=== PATIENT | female | born 1970 ===

== ENCOUNTER 2016-09-26 15:36 | Emergency (ER) | payer OTHER ==
[2016-09-26 15:55] VITALS: TEMP 98.5
--- NOTE | 2016-09-26 16:22 | C.PDOC ---
History Of Present Illness 46 yr old female presents to the ER for evaluation of itchy rash to the bilateral upper extremities, chest, abdomen and lower back for the past 3 days. patient denies prior history of allergies, sick contact, fever, chills, chest pain, SOB, wheezing, nausea, vomiting, weakness or numbness. Time Seen by Provider: 09/26/16 15:59 Chief Complaint (Nursing): Allergic Reaction History Per: Patient History/Exam Limitations: no limitations Onset/Duration Of Symptoms: Days (3) Current Symptoms Are (Timing): Still Present Possible Cause: Unknown Past Medical History Reviewed: Historical Data, Nursing Documentation, Vital Signs Vital Signs: Last Vital Signs Temp 98.5 F 09/26/16 15:54 Pulse 114 H 09/26/16 15:54 Resp 20 09/26/16 15:54 BP 117/79 09/26/16 15:54 Pulse Ox 97 09/26/16 16:40 Family History: States: No Known Family Hx - Social History Hx Alcohol Use: No Hx Substance Use: No - Immunization History Hx Tetanus Toxoid Vaccination: No Hx Influenza Vaccination: No Hx Pneumococcal Vaccination: No Review Of Systems Except As Marked, All Systems Reviewed And Found Negative. Constitutional: Negative for: Fever, Chills Cardiovascular: Negative for: Chest Pain Respiratory: Negative for: Shortness of Breath, Wheezing Gastrointestinal: Negative for: Nausea, Vomiting Skin: Positive for: Rash (Itchy rash to the bilateral upper extrmeities, chest, abdomen and lower back. ) Neurological: Negative for: Weakness, Numbness Physical Exam - Physical Exam Appears: Well, Non-toxic, No Acute Distress Skin: Warm, Dry, Rash (scattared urticaria to B/L UEs, chest , abdomen, lower back. No cellulitis.) Eye(s): bilateral: Normal Inspection Nose: Normal, No Discharge Oral Mucosa: Moist Tongue: Normal Appearing, No Swelling Lips: Normal Appearing, No Swelling Throat: Normal, No Erythema, No Exudate, No Drooling, Other (Uvula midline, no edema.) Neck: Normal, Normal ROM, Supple Cardiovascular: Rhythm Regular Respiratory: Normal Breath Sounds, No Stridor, No Wheezing Gastrointestinal/Abdominal: Normal Exam, Soft, No Tenderness Back: Normal Inspection Extremity: Normal ROM, No Pedal Edema Neurological/Psych: Oriented x3, Normal Speech ED Course And Treatment O2 Sat by Pulse Oximetry: 97 Pulse Ox Interpretation: Normal Progress Note: On re-evaluation, pt is afebrile, hemodynamicaly stable. Non- toxic. Tolerate PO well in ED. PulseOx 97% RA. ENT: no acute findings. uvula midline, no edema. Neck: (-) meningeal sign. Lungs: CTA B/L, BS equal B/L. Skin: exam c/w urticaria, no cellulitis. Neurologicaly intact. FSBS 300. Pt denies fever, chills, headache, dizziness, abd. pain, N/V. Pt advised increase fluids intake, take DM medication as prescribed. Pt advised on course of ds, avoid possible allergen, and ref. to F/u with PMD and Derm in 2-3 days for re- eavl. return if any new changes. 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 Return to ED if any worsening or new changes. 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 - Scribe Statement The provider has reviewed the documentation as recorded by the Scribe Sharon Lau All medical record entries made by the Scribe were at my direction and personally dictated by me. I have reviewed the chart and agree that the record accurately reflects my personal performance of the history, physical exam, medical decision making, and the department course for this patient. I have also personally directed, reviewed, and agree with the discharge instructions and disposition.
[2016-09-26 17:11] VITALS: BP 124/72; PULSE 92; RESP 18; O2SAT 98
== END 2016-09-26 17:12 | disposition home or self-care (01) ==
LOC: C.ER 15:36
DX: L50.9 Urticaria, unspecified (principal); E11.65 Type 2 diabetes mellitus with hyperglycemia
CPT/HCPCS: 82948; 96372; 99284; J2930

== ENCOUNTER 2017-08-15 10:15 | Emergency (ER) | payer OTHER ==
[2017-08-15 10:26] VITALS: BMI 39.0
[2017-08-15 10:29] VITALS: O2SAT 98
--- NOTE | 2017-08-15 11:18 | C.PDOC ---
History Of Present Illness VIA TRANS LLQ PAIN X 3 DAYS. INTERMIT. OCC RADIATION RUQ. +BLOATING, LAST BM YEST. OCC NAUSEA. NO FEVER. PSH CSECT. 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: Compotype Operator History/Exam Limitations: no limitations Onset/Duration Of Symptoms: Days Current Symptoms Are (Timing): Still Present Severity: Moderate Location Of Pain/Discomfort: LLQ Past Medical History Reviewed: Historical Data, Nursing Documentation, Vital Signs Vital Signs: Last Vital Signs Temp 98.7 F 08/15/17 10:28 Pulse 102 H 08/15/17 10:28 Resp 18 08/15/17 10:28 BP 143/83 08/15/17 10:28 Pulse Ox 98 08/15/17 12:44 - Medical History PMH: No Chronic Diseases Other Surgeries: Hx of surgeries Family History: States: No Known Family Hx - Social History Hx Alcohol Use: No Hx Substance Use: No - Immunization History Hx Tetanus Toxoid Vaccination: No Hx Influenza Vaccination: No Hx Pneumococcal Vaccination: No Review Of Systems Except As Marked, All Systems Reviewed And Found Negative. Constitutional: Negative for: Fever, Chills Gastrointestinal: Positive for: Nausea (occasional nausea), Abdominal Pain Genitourinary: Negative for: Dysuria, Hematuria Physical Exam - Physical Exam Appears: Non-toxic, Other (mild distress) Skin: Normal Color, Warm Head: Atraumatic, Normacephalic Eye(s): bilateral: Normal Inspection Gastrointestinal/Abdominal: Normal Exam, Soft, Tenderness (LLQ tenderness), No Guarding, No Rebound, Other (obese) Neurological/Psych: Oriented x3, Normal Speech, Normal Motor, Normal Sensation ED Course And Treatment - Laboratory Results Result Diagrams: 08/15/17 12:18 08/15/17 12:18 O2 Sat by Pulse Oximetry: 98 (RA) Pulse Ox Interpretation: Normal Reevaluation Time: 14:57 Reassessment Condition: Improved Medical Decision Making Medical Decision Making: Plan: --Labs --UA --CT-Abd/Pelv. Disposition Counseled Patient/Family Regarding: Studies Performed, Diagnosis, Need For Followup, Rx Given - Disposition Referrals: [facility] [Outside] [facility] [Outside] Disposition: HOME/ ROUTINE Disposition Time: 14:58 Condition: GOOD Prescriptions: Magnesium Citrate [[facility] Magnesium Citrate] 300 ml PO ONCE #1 bottle Instructions: Constipation in Adults Forms: [facility] (Swedish) Print Language: MOZAMBICAN - Clinical Impression Clinical Impression: Constipation, Abdominal pain - Scribe Statement The provider has reviewed the documentation as recorded by the Lauraibe Wiliam Aponte Provider Attestation: All medical record entries made by the Lauraibrubi were at my direction and personally dictated by me. I have reviewed the chart and agree that the record accurately reflects my personal performance of the history, physical exam, medical decision making, and the department course for this patient. I have also personally directed, reviewed, and agree with the discharge instructions and disposition.
[2017-08-15 12:23] LABS: BASO # 0.1 K/uL (0.0-0.2); BASO % 0.8 % (0.0-2.0); EOS # 0.2 K/uL (0.0-0.7); EOS % 1.8 % (0.0-4.0); HEMOGLOBIN 14.5 g/dL (11.0-16.0); LYMPH # 4.3 K/uL (1.0-4.3); LYMPH % 41.8 % (20.0-40.0); MEAN CELL VOLUME 85.6 fL (81.0-99.0); MEAN CORPUSCULAR HEMOGLOBIN 29.5 pg (27.0-31.0); MEAN CORPUSCULAR HGB CONC 34.4 g/dL (33.0-37.0); MONO # 0.4 K/uL (0.0-0.8); MONO % 4.1 % (0.0-10.0); NEUT # 5.3 K/uL (1.8-7.0); NEUT % 51.5 % (50.0-75.0); RBC 4.91 Mil/uL (3.80-5.20); RED CELL DISTRIBUTION WIDTH 13.8 % (11.5-14.5); WHITE BLOOD COUNT 10.3 K/uL (4.8-10.8)
[2017-08-15 12:26] LABS: SQUAMOUS EPITHIAL 1 /hpf (0-5); URINE BILIRUBIN NEGATIVE (NEGATIVE); URINE BLOOD NEGATIVE (NEGATIVE); URINE CLARITY Clear (Clear); URINE COLOR Straw (YELLOW); URINE GLUCOSE (UA) 3+ mg/dL (Normal); URINE LEUKOCYTE ESTERASE NEG Leu/uL (Negative); URINE NITRATE NEGATIVE (NEGATIVE); URINE PROTEIN NEGATIVE (NEGATIVE); URINE UROBILINOGEN NORMAL mg/dL (0.2-1.0)
[2017-08-15 12:39] LABS: ALB/GLOB RATIO 1.1 (1.0-2.1); ALBUMIN 4.2 g/dL (3.5-5.0); ALT/SGPT 25 U/L (9-52); AST/SGOT 18 U/L (14-36); BLOOD UREA NITROGEN 8 mg/dL (7-17); CALCIUM 9.7 mg/dl (8.6-10.4); GFR AFRICAN-AMERICAN > 60; GFR NON-AFRICAN AMERICAN > 60; LIPASE 75 U/L (23-300)
[2017-08-15] MEDS ORDERED: Iodixanol 320 MG/ML 100 ML BOTTLE IV ONE (13:42)
--- NOTE | 2017-08-15 14:43 | CT ---
PROCEDURE: CT Abdomen and Pelvis with contrast HISTORY: LLQ PAIN COMPARISON: Abdominal ultrasound performed 02/07/17 TECHNIQUE: Contrast dose: 100 mL Visipaque IV Radiation dose: Total exam DLP = 1220.45 mGy-cm. This CT exam was performed using one or more of the following dose reduction techniques: Automated exposure control, adjustment of the mA and/or kV according to patient size, and/or use of iterative reconstruction technique. FINDINGS: LOWER THORAX: No visible consolidation, pleural effusion, or pneumothorax. LIVER: Unremarkable. GALLBLADDER AND BILE DUCTS: Unremarkable. PANCREAS: Unremarkable. SPLEEN: Unremarkable. ADRENALS: Unremarkable. KIDNEYS AND URETERS: The kidneys enhance symmetrically. No hydronephrosis or obstructing calculus identified. VASCULATURE: No aortic aneurysm. BOWEL: Stomach is nondistended. Lack of oral contrast limits evaluation for bowel pathology. Bowel loops appear within normal limits of caliber without evidence of obstruction. Moderate constipation. APPENDIX: The appendix appears within normal limits of caliber. No secondary signs of acute appendicitis. PERITONEUM: No significant free fluid. No definite free air. LYMPH NODES: No bulky adenopathy identified. BLADDER: Unremarkable. REPRODUCTIVE: The uterus is present. BONES: No acute osseous abnormality is detected. OTHER FINDINGS: Small fat containing umbilical hernia. IMPRESSION: Moderate constipation. Small fat containing umbilical hernia.
[2017-08-15 15:43] VITALS: BP 133/82; PULSE 100; RESP 20; TEMP 98.3
== END 2017-08-15 15:42 | disposition home or self-care (01) ==
LOC: C.ER 10:15
DX: K59.00 Constipation, unspecified (principal); R10.32 Left lower quadrant pain
CPT/HCPCS: 74177; 80053; 81001; 83690; 85025; 99285; Q9967